=== PATIENT | male | born 1970 | race Caucasian/White ===

== ENCOUNTER → 2018-03-20 | Outpatient (CLI) | payer OTHER ==
[2015-05-25 08:51] VITALS: BP 121/60
[~2018-03-20] MED LIST: ASPI81TA59 PO; Acetaminophen With Codeine PO; BUPR150T8 PO; Butalb/Acetaminophen/Caffeine PO; LISI10TA PO; LORA10TA68 PO; OMEG1CAP6 PO; ROPI0.5T PO; SIMV20TA PO
== END | disposition home or self-care (01) ==
LOC: SURG 11:09
PROVIDERS: ATTEND Anesthesiology Pain Medicine
DX: M47.816 Spondylosis without myelopathy or radiculopathy, lumbar region (principal); I10 Essential (primary) hypertension; E78.5 Hyperlipidemia, unspecified
CPT/HCPCS: 99204

== ENCOUNTER → 2018-04-10 | Outpatient (CLI) | payer OTHER ==
[2015-05-25 08:51] VITALS: BP 121/60
[~2018-04-10] MED LIST changes: +BUPIVACAINE MPF 0.5% 30 ML VIAL. ONE; +LIDOCAINE 1% PF 30 ML VIAL. ONE
== END | disposition home or self-care (01) ==
LOC: SURG 08:14
PROVIDERS: ATTEND Anesthesiology Pain Medicine
DX: M47.816 Spondylosis without myelopathy or radiculopathy, lumbar region (principal); M51.36 Other intervertebral disc degeneration, lumbar region; I10 Essential (primary) hypertension; Z72.89 Other problems related to lifestyle; G47.30 Sleep apnea, unspecified; M19.90 Unspecified osteoarthritis, unspecified site; Z79.82 Long term (current) use of aspirin
CPT/HCPCS: 64493; 64494; J2001; J3490

== ENCOUNTER → 2021-10-02 | Outpatient (CLI) | payer OTHER ==
[2015-05-25 08:51] VITALS: BP 121/60
[~2021-10-02] MED LIST changes: -BUPIVACAINE MPF 0.5% 30 ML VIAL. ONE; -LIDOCAINE 1% PF 30 ML VIAL. ONE
[2021-10-03 03:08] LABS: HEMOGLOBIN A1C 8.3 % (4.8-5.6)
== END ==
LOC: LAB 15:22
PROVIDERS: ATTEND Family Medicine
DX: E11.9 Type 2 diabetes mellitus without complications (principal)
CPT/HCPCS: 36415; 83036